=== PATIENT | male | born 1940 | race Caucasian/White ===

== ENCOUNTER 2022-01-08 18:17 | Emergency (ER) | payer OTHER, MEDICAID ==
[~2022-01-08] VITALS: Ht 180.3 cm; Wt 90.7 kg
[2022-01-08 18:36] VITALS: BP 121/55
== END 2022-01-08 21:05 | disposition home or self-care (01) ==
LOC: ER 18:24
DX: L03.116 Cellulitis of left lower limb (principal)

== ENCOUNTER 2022-11-19 17:22 | Emergency (ER) | payer OTHER ==
[~2022-11-19] VITALS: Ht 175.3 cm; Wt 100.0 kg
[2022-11-19] MEDS ORDERED: CEPH-510 PO (20:41)
[2022-11-19] MEDS ORDERED: BACITRACIN TOP OINT 1 UD PKG TOP ONE (20:45)
[2022-11-19] MEDS ORDERED: cefTRIAXone SOD 1,000 MG VL IM ONE (20:45)
[2022-11-19 21:45] VITALS: BP 128/64
== END 2022-11-19 21:45 | disposition home or self-care (01) ==
LOC: ER 17:22
DX: L03.113 Cellulitis of right upper limb (principal); Z79.899 Other long term (current) drug therapy
CPT/HCPCS: 96372; 99283; J0696

== ENCOUNTER 2025-04-27 00:23 | Inpatient (IN) | payer OTHER ==
[~2025-04-27] VITALS: Ht 193 cm; Wt 114.0 kg
[~2025-04-27 00:23] MED LIST: CEPH-510 PO
--- NOTE | 2025-04-27 01:10 | ED.PDOC ---
GI ASSESSMENT HPI Comments 84 year old male presents to the ED with a chief complaint of abdominal pain onset 2 days. Patient is a poor historian. Patient states he has been experiencing epigastric pain for the past 2 days, described as a burning sensation. He was seen at [place] 2 days ago when symptoms occurred, states symptoms were resolved prior to discharge, returned once he was home. Denies any PMHx. Denies chest pain, shortness of breath, nausea, vomiting, diarrhea, headache, constipation, blurry vision, fever. No other symptoms or modifying factors present at this time. Time Seen by MD: 01:00 Primary Care Provider: UNKNOWN Reviewed Notes: Medications, Allergies Allergies: Coded Allergies: NO KNOWN ALLERGIES (Unverified , 01/08/22) Home Meds Active Scripts Cephalexin ( Keflex 500) 500 Mg Cap, 1 CAP PO BID for 7 Days, #14 CAP 0 Refills Prov:KAL MARTE 11/19/22 Information Source: Patient, Friend Mode of Arrival: Wheelchair Timing: Days Duration: Since onset Prehospital treatment: None Quality: Burning Vomitus: None Severity: Moderate Recent: None Recent Hx of: None Pain Location: Epigastric Modifying Factors: Nothing Associated sign and symptoms: Abdominal Pain Vital Signs Vital Signs Date Time Temp Pulse Resp B/P (MAP) Pulse Ox O2 Delivery O2 Flow Rate FiO2 04/27/25 12:29 77 22 162/66 04/27/25 12:00 98.4 97 98.4 04/27/25 08:00 Nasal Cannula* 3 32 Physical Exam PHYSICAL EXAM: General: Awake, alert and oriented. No acute distress. Skin: Skin in warm, dry and intact. Appropriate color for ethnicity. HEENT: The head is normocephalic and atraumatic. Conjunctivae are clear without exudates or hemorrhage. Sclera is non-icteric. EOM are intact. No signs of nystagmus. Eyelids are normal in appearance without swelling or lesions. Oral mucosa is pink and moist Neck: The neck is supple with normal range of motion. No JVD. Cardiac: Heart rate and rhythm are normal. No murmurs, gallops, or rubs are auscultated. Respiratory: No signs of respiratory distress. Lung sounds are clear in all lobes bilaterally without rales, rhonchi, or wheezes. Abdominal: Abdomen is soft, positive epigastric tenderness without distention, guarding or rigidity. Bowel sounds are present and normoactive in all four quadrants. Neurological: The patient is awake, alert and oriented to person, place, and time with normal speech. Speech is clear. There is no facial asymmetry. Review of Systems: REVIEW OF SYSTEMS: General: No fever, no chills, or fatigue HEENT: No sore throat, no earache, no congestion, no neck pain. Cardiac: No chest pain. No palpitations. Lungs: No shortness of breath, no cough. GI: No nausea, no vomiting, no diarrhea, no constipation, positive abdominal pain : No dysuria, frequency, or urgency. No hematuria. Musculoskeletal: No joint pain , no joint swelling, no extremity edema. Skin: No rash, no itching. Neuro: No headache, no dizziness, no weakness Past Medical History PAST MEDICAL HISTORY: Denies Surgical History: Denies all surgeries Family History Family History: Unknown Social History Smoker: Non-Smoker Alcohol: Denies ETOH Use Drugs: Denies Drug Use Lives In: Home Was a procedure done? Was a procedure done?: No GI differential Dx Differential Diagnosis: Other (Differential diagnoses considered include: Abdominal aortic aneurysm, SC, esophageal rupture, intestinal obstruction, mesenteric ischemia, perforated viscus or solid organ rupture, CHF with hepatomegaly, pneumonia, abscess, appendicitis, biliary disease, diverticulitis, gastritis, gastroenteritis, hepatitis, hernia, inflammatory bowel disease, pancreatitis, peptic ulcer disease, urinary tract infection, ureteral colic, constipation, GERD, irritable syndrome, abdominal wall pain, nonspecific abdominal pain, herpes zoster, nephrolithiasis.) X-Ray, Labs, Meds, VS Vital Signs Date Time Temp Pulse Resp B/P (MAP) Pulse Ox O2 Delivery O2 Flow Rate FiO2 04/27/25 12:29 77 22 162/66 04/27/25 12:00 76 04/27/25 12:00 98.4 77 22 162/66 (98) 97 98.4 04/27/25 11:39 77 16 153/69 04/27/25 08:14 78 04/27/25 08:00 77 20 95 Nasal Cannula* 3 32 04/27/25 08:00 98.3 72 20 140/42 (74) 95 98.3 04/27/25 03:36 73 16 164/71 04/27/25 02:44 71 14 92 Room Air* 0 21 7/16/25 02:43 98.0 71 14 165/72 (103) 93 98.0 04/27/25 01:16 97.6 61 20 153/65 (94) 95 97.6 Lab Test 04/27/25 09:14 04/27/25 07:12 04/27/25 05:30 04/27/25 04:30 Range/Units Lactic Acid Level 2.0 2.1 *H 0.4-2.0 mmol/L Urine Color Yellow Yellow Urine Clarity Ex.turbid Clear Urine pH 7.5 5.0-9.0 Urine Specific [place] 1.019 1.001-1.035 Urine Protein Negative Negative Urine Ketones 1+ H Negative Urine Blood Negative Negative /uL Urine Nitrite Negative Negative Urine Bilirubin Negative Negative Urine Urobilinogen Normal Negative mg/dL Urine Leukocyte Esterase Negative Negative /uL Urine RBC 5 0 - 3 /hpf Urine Microscopic WBC 1 0-3 /HPF Urine Squamous Epithelial Cells None seen <5 /hpf Urine Amorphous Crystals Few None Seen /hpf Urine Bacteria None seen None Seen /hpf Urine Glucose Normal Normal mg/dL Troponin I High Sensitivity 3 L </=54 ng/L Test 04/27/25 02:22 04/27/25 01:24 Range/Units Troponin I High Sensitivity < 3 L < 3 L </=54 ng/L White Blood Count 12.7 H 4.4-10.8 10^3/uL Red Blood Count 4.71 4.5-5.90 10^6/uL Hemoglobin 14.6 13.5-17.5 g/dL Hematocrit 44.6 41.0-53.0 % Mean Corpuscular Volume 94.7 80.0-100.0 fL Mean Corpuscular Hemoglobin 31.0 28.0-32.0 pg Mean Corpuscular Hemoglobin Concent 32.8 32.0-36.0 g/dL Red Cell Distribution Width 12.9 11.8-14.3 % Platelet Count 245 140-450 10^3/uL Mean Platelet Volume 7.6 6.9-10.8 fL Neutrophils (%) (Auto) 82.2 H 37.0-80.0 % Lymphocytes (%) (Auto) 9.4 L 10.0-50.0 % Monocytes (%) (Auto) 7.3 0.0-12.0 % Eosinophils (%) (Auto) 0.9 0.0-7.0 % Basophils (%) (Auto) 0.2 0.0-2.0 % Neutrophils # (Auto) 10.4 H 1.6-8.6 10 ^3/uL Lymphocytes # (Auto) 1.2 0.4-5.4 10 ^3/uL Monocytes # (Auto) 0.9 0-1.3 10 ^3/uL Eosinophils # (Auto) 0.1 0-0.8 10 ^3/uL Basophils # (Auto) 0 0-0.2 10 ^3/uL Nucleated Red Blood Cells 0.0 % Sodium Level 138 136-145 mmol/L Potassium Level 3.9 3.5-5.1 mmol/L Chloride Level 101 98-107 mmol/L Carbon Dioxide Level 29 20-31 mmol/L Anion Gap 8 5-15 Blood Urea Nitrogen 14 9-23 mg/dL Creatinine 0.90 0.700-1.30 mg/dL Glomerular Filtration Rate Calc 85 >90 mL/min BUN/Creatinine Ratio 15.6 10.0-20.0 Serum Glucose 125 H 74-106 mg/dL Calcium Level 9.5 8.7-10.4 mg/dL Total Bilirubin 0.7 0.2-1.0 mg/dL Aspartate Amino Transferase (AST) 17 13-40 U/L Alanine Aminotransferase (ALT) 11 7-40 U/L Alkaline Phosphatase 114 46-116 U/L Total Protein 7.4 5.7-8.2 g/dL Albumin 4.3 3.2-4.8 g/dL Lipase 26 12-53 U/L Current Medications Medications (Trade) Dose Ordered Sig/Cathleen Route Start Time Stop Time Status Last Admin Al Hydrox/Mg Hydrox/Simethicone (Maalox Plus) 30 ml ONCE ONCE PO 04/27/25 01:15 04/27/25 01:16 DC 04/27/25 02:38 Lidocaine HCl (Xylocaine 2% Viscous) 10 ml ONCE ONCE PO 04/27/25 01:15 04/27/25 01:16 DC 04/27/25 02:38 Morphine Sulfate 2 mg ONCE ONCE IV 04/27/25 03:45 04/27/25 03:46 DC 04/27/25 03:36 Ondansetron HCl (Zofran) 4 mg ONCE ONCE IV 04/27/25 03:45 04/27/25 03:46 DC 04/27/25 03:35 Sodium Chloride 500 ml @ 500 mls/hr Q1H ONCE IV 04/27/25 05:45 04/27/25 06:44 DC 04/27/25 05:54 Acetaminophen (Tylenol Tablet Or Capsule) 1,000 mg ONCE ONCE PO 04/27/25 05:45 04/27/25 05:46 DC 04/27/25 05:54 Morphine Sulfate 2 mg Q4HPRN PRN IV 04/27/25 07:45 04/27/25 11:39 Piperacillin Sod/ Tazobactam Sod 100 ml @ 100 mls/hr ONCE ONCE IV 04/27/25 08:45 04/27/25 09:44 DC 04/27/25 09:44 Time of 1ST Reevaluation: 01:30 Reevaluation 1ST: Unchanged Patient Education/Counseling: Need For Follow Up Family Education/Counseling: Need For Follow Up SEPSIS Sepsis Screen Physician Orders Electrocardigram (04/27/25 02:04) Electrocardigram (04/27/25 04:04) Ct Ab Pel Wo Con-No Oral Or Iv (04/27/25 01:48) Npo (Nothing By Mouth) Diet (04/27/25 Breakfast) Ondansetron Hcl (Zofran) (04/27/25 07:45) Fall Risk Precautions In Place QSHIFT (04/27/25 07:33) Complete Blood Count (04/28/25 04:00) Comprehensive Metabolic Panel (04/28/25 04:00) Nm Hida Scan (04/27/25 07:33) Piperacillin-Tazob 3.375gm (Zosyn 3.375g (04/27/25 16:00) Morphine Sulfate Injection (04/27/25 07:45) *[facility] (04/27/25 07:33) Vital Signs Date Time Temp Pulse Resp B/P (MAP) Pulse Ox O2 Delivery O2 Flow Rate FiO2 04/27/25 12:29 77 22 162/66 04/27/25 12:00 76 04/27/25 12:00 98.4 77 22 162/66 (98) 97 98.4 04/27/25 11:39 77 16 153/69 04/27/25 08:14 78 04/27/25 08:00 77 20 95 Nasal Cannula* 3 32 04/27/25 08:00 98.3 72 20 140/42 (74) 95 98.3 04/27/25 03:36 73 16 164/71 04/27/25 02:44 71 14 92 Room Air* 0 21 04/27/25 02:43 98.0 71 14 165/72 (103) 93 98.0 04/27/25 01:16 97.6 61 20 153/65 (94) 95 97.6 Laboratory Tests Test 04/27/25 01:24 04/27/25 07:12 04/27/25 09:14 White Blood Count 12.7 10^3/uL (4.4-10.8) H Lactic Acid Level 2.1 mmol/L (0.4-2.0) *H 2.0 mmol/L (0.4-2.0) Departure 1 Departure Time of Disposition: 04:35 Impression: Primary Impression: Intractable abdominal pain Disposition: ADMITTED INPATIENT Condition: Stable Additional Instructions: ED DISCHARGE INSTRUCTIONS Instructions: Please read all instructions provided in this packet carefully. Although you have been discharged from the Emergency Department, this does not mean that you have a "clean bill of health". No definitive diagnosis for your symptoms has been made today. It is possible that you are in the process of developing a serious illness. This is why you must return to the ED without fail if any new or worsening symptoms (especially if your symptoms include chest pain, trouble breathing, abdominal pain, fever, headache, confusion, trouble seeing, or trouble walking) It is also very important that you see a primary care provider (PCP) within the next 1-3 days to follow up. If you are unable to get an appointment, return to the ED for re-evaluation. Comments [facility]: @[id number] discussed with request for admission, he requests a call back with UA result Extensive evaluation was performed in attempt to identify or rule out: (See differential diagnosis section) The following tests were ordered, and results were reviewed by me and discussed with patient: (See diagnostic results section) The following test were independently interpreted by me: N/A I reviewed and agreed with the following test results read by other providers: CT abdomen and pelvis without contrast I reviewed the following notes from the pt's past medical encounters: N/A Additional information was gathered from interviewing the following independent historians: Patient's friend at bedside Discussion of management or test interpretation with external physician/other qualified health primary care sales representative: Yes Parenteral controlled substances: IV morphine Critical Care Note Critical Care Time?: No Stability Stability form required: No I personally scribed for CAT TRUONG MD ([email or web address]) on 04/27/25 at 01:10. Electronically submitted by Dinorah Farmer ([email or web address]). CAT TRUONG MD Apr 27, 2025 01:10
[2025-04-27] MEDS: IOHEXOL 300 MG/ML 100ML BOTTLE IJ ONE (01:32)
[2025-04-27 01:49] LABS: Hematocrit 44.6 % (41.0-53.0); Hemoglobin 14.6 g/dL (13.5-17.5); Mean Corpuscular Hemoglobin 31.0 pg (28.0-32.0); Mean Corpuscular Volume 94.7 fL (80.0-100.0); Nucleated Red Blood Cells % 0.0 %
[2025-04-27 02:05] LABS: Alanine Aminotransferase 11 U/L (7-40); Albumin 4.3 g/dL (3.2-4.8); Alkaline Phosphatase 114 U/L (46-116); Anion Gap 8 (5-15); BUN/Creatinine Ratio 15.6 (10.0-20.0); Bilirubin, Total 0.7 mg/dL (0.2-1.0); Blood Urea Nitrogen 14 mg/dL (9-23); Calcium 9.5 mg/dL (8.7-10.4); Carbon Dioxide 29 mmol/L (20-31); Chloride 101 mmol/L (98-107); Lipase 26 U/L (12-53); Potassium 3.9 mmol/L (3.5-5.1); Sodium 138 mmol/L (136-145); Total Protein 7.4 g/dL (5.7-8.2)
[2025-04-27 02:17] LABS: Glucose 125 mg/dL (74-106)
[2025-04-27] MEDS: LIDOCAINE VISCOUS 2% 15ML UD PO ONE (02:38)
[2025-04-27] MEDS: MAALOX PLUS or MAALOX 30 ML PO ONE (02:38)
[2025-04-27 02:44] VITALS: PULSE 71; RESP 14; O2SAT 92
[2025-04-27] MEDS: ONDANSETRON HCL 4 MG/2 ML VIAL IV ONE (03:35)
[2025-04-27] MEDS: MORPHINE SULFATE INJ 2 MG/ml SYRG IV ONE (03:36)
--- NOTE | 2025-04-27 04:33 | DVH ---
Exam: CT CT AB PEL WO CON-NO ORAL OR IV History: Epigastric abdominal pain Comparison Study: None Technique: Multidetector spiral CT of the abdomen and pelvis was performed from lung bases to pubic s ymphysis. Imaging was performed without intravenous contrast. Coronal and sagittal multiplanar reform ats were obtained from the axial data set by the technologist. Radiation Dose : 1. Abdomen/Pelvis: CTDIvol 27.8 mGy, DLP 1477.74 mGy*cm. Findings: Evaluation of vasculature and solid organs is limited due to lack of intravenous contrast use. Lung Bases: Calcified mediastinal and bilateral hilar lymph nodes. Left basilar opacities and bronchi ectasis. Visualized portions of the heart and pericardium are unremarkable. Liver: The liver is normal in size. No focal lesions. Gallbladder and Biliary Tree: The gallbladder has punctate gallstones. No intrahepatic or extrahepat ic biliary ductal dilatation. Spleen: Unremarkable Pancreas: The pancreas is grossly unremarkable. Adrenal Glands: Unremarkable Kidneys: Bilateral renal cysts. No intrarenal calculi or hydronephrosis. GI tract: The stomach is grossly normal in appearance. No evidence of small bowel wall thickening or abnormal dilatation to suggest bowel obstruction. There is sigmoid diverticulosis without acute diver ticulitis. No acute appendicitis. Peritoneum/mesentery/retroperitoneum. No evidence of free intraperitoneal air. No ascites. No evidenc e of suspicious lymphadenopathy. Abdominal Wall: Unremarkable. Vasculature: The visualized abdominal aorta is normal in size and caliber. Evaluation of abdominal a nd pelvic vessels is limited due to lack of intravenous contrast. Urinary Bladder: Excreted contrast in the urinary bladder. Pelvic Organs: Unremarkable Musculoskeletal: No aggressive focal bony lesions, acute fractures or dislocation. Right hip joint sp ezequiel narrowing and osteophytes. Left femoral nail and screw. Age-indeterminate L1 compression deformit y. Multilevel lumbar spondylosis. Soft tissues: Bilateral fat containing inguinal hernias. IMPRESSION: 1. No acute abdominal or pelvic findings. 2. Sigmoid diverticulosis without acute diverticulitis. 3. Gallstones.
[2025-04-27] MEDS: SODIUM CHLORIDE 0.9% 500 ML IV ONE (05:54)
[2025-04-27] MEDS: ACETAMINOPHEN 500 MG TAB or CAP PO ONE (05:54)
[2025-04-27 07:01] LABS: Urine Amorphous Crystal FEW /hpf (None Seen); Urine Protein, UAD Negative (Negative)
[2025-04-27] MEDS ORDERED: ONDANSETRON HCL 4 MG/2 ML VIAL IV PRN (07:45)
[2025-04-27 08:00] VITALS: PULSE 77; RESP 20; O2SAT 95
[2025-04-27 08:02] LABS: Lactic Acid w/Reflex 2.1 mmol/L (0.4-2.0)
[2025-04-27] MEDS: PIPERACILLIN-TAZOB 3.375GM 100 ML IV ONE (09:44)
[2025-04-27] MEDS: MORPHINE SULFATE INJ 2 MG/ml SYRG IV PRN (11:39)
--- NOTE | 2025-04-27 13:35 | DVH ---
EXAM: NM NM HIDA SCAN History: rule out obstruction, Comparison Study: None TECHNIQUE: Following intravenous administration of 5.5 mCi of Tc-99m mebrofenin (Choletec), dynamic sequential images of the right upper abdomen were acquired for 14 minutes. After the intravenous administration of 2 mg of morphine sulfate, delayed images were acquired at 2 h ours post radiotracer administration. Dynamic images not acquired due to patient being unstable. FINDINGS: The liver demonstrates prompt radiotracer uptake with clearance from blood pool. No focal perfusion d efects were noted. There was prompt excretion of the radiotracer into the biliary tree, without evide nce of biliary dilatation or obstruction. Following administration of morphine, there was no filling of the gallbladder. IMPRESSION: 1. Nonvisualized gallbladder, consistent with acute cholecystitis.
[2025-04-27] MEDS ORDERED: MORPHINE SULFATE INJ 2 MG/ml SYRG IV PRN (13:45)
[2025-04-27] MEDS ORDERED: NITROGLYCERIN 0.4 MG SL TAB SL PRN (13:45)
[2025-04-27] MEDS: LORazepam 2MG/ML-1ML VIAL IV ONE (14:13)
[2025-04-27] MEDS ORDERED: LORazepam 2MG/ML-1ML VIAL IV PRN (14:15)
[2025-04-27] MEDS: D5W/SOD CHL 0.45%/KCL 20MEQ 1,000 ML IV SCH (15:01)
[2025-04-27 16:00] VITALS: BP 137/60; PULSE 80; RESP 20; TEMP 98.6; O2SAT 95
[2025-04-27 16:20] VITALS: BP 137/60; PULSE 80; RESP 20; TEMP 98.6; O2SAT 95
[2025-04-27 16:27] LABS: INR 1.18 (0.9-1.15); Partial Thromboplastin Time 27.1 SEC (24.5-34.5); Prothrombin Time 12.3 sec (9.3-11.8)
[2025-04-27] MEDS: PIPERACILLIN-TAZOB 3.375GM 100 ML IV SCH (16:58)
--- NOTE | 2025-04-27 17:00 | DVH ---
EXAM: XY CHEST XRAY 1 VIEW TECHNIQUE: Single frontal chest radiograph CLINICAL HISTORY: Preop eval COMPARISON: None Findings/Impression: Frontal chest radiograph demonstrates no acute osseous or superficial soft tissue abnormalities. The trachea is midline. The cardiac silhouette and mediastinum are within normal limits. Low lung volumes with bronchovascular crowding. No pneumothorax, pleural effusions, or consolidations.
--- NOTE | 2025-04-27 19:14 | ECG ---
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
[2025-04-27 20:00] VITALS: PULSE 79
--- NOTE | 2025-04-27 20:22 | DVHHP ---
ADMIT DATE: 04/27/2025 CHIEF COMPLAINT: Coming in for abdominal pain, nausea, and vomiting. HISTORY OF PRESENT ILLNESS: An 84-year-old male with no known significant medical history, elderly male lying in bed, a poor historian who is complaining of epigastric pain that seems to be intermittent in nature, associated with nausea and vomiting symptoms. It has been occurring since last Friday. He has been seen at [place] twice due to these symptoms and presents again today due to symptoms are not relenting. The patient denies any diarrhea, constipation, bloody or tarry stools. He denies any fevers or chills and cannot express whether his symptoms are progressively worsened with consumption of food or with abstinence of food. Again, as mentioned above, he is a very poor historian and seems to be alert to self. He is able to tell me today's month and day after looking at his watch, but he is unable to tell me the year. He is able to tell me that he is at a place where sick people are seen, but is unable to express it is a hospital and seems to know his date of and knows who is the president, but apparently has issues remembering other things as mentioned above. The patient likely has some sort of a cognitive deficit, but seems to be overall not confused and able to follow most of the commands. Family members are not around and attempted to reach anybody. The patient does not seem to be confused and seemed more likely to have underlying cognitive deficits, difficulty expressing that he is at a hospital and what the year is. The patient otherwise seems to be stable at this point in time. There are no family members or friends around for questioning. Apparently, there was an individual who was a friend that was with him earlier in the morning that has left and there was no contact for that individual. PAST MEDICAL HISTORY: Per the patient, none. PAST SURGICAL HISTORY: Denies any prior surgeries. SOCIAL HISTORY: Denies tobacco, alcohol, or illicit drugs. MEDICATIONS: The patient denies taking any medications. MEDICATION ALLERGIES: No known drug allergies. REVIEW OF SYSTEMS: A 10-point review of systems was covered with the patient and was negative with the exception to what was present in the history of present illness. PHYSICAL EXAMINATION: VITAL SIGNS: Temperature of 98.4, pulse rate 77, respirations 22, blood pressure 162/66, pulse ox about 97% on room air. GENERAL: Seems to be alert to time, self, and hospital. Not in acute distress male, lying in bed with poor hygiene. HEENT: Normocephalic, atraumatic. Extraocular muscles are intact. Pupils are equally round and reactive to light and accommodations. Mucous membranes look dry. CARDIOVASCULAR: S1, S2 positive. Regular rate and rhythm. No rubs, gallops or murmurs. LUNGS: Seem to be with minimal bilateral posterior base rales. No wheezing or rhonchi. ABDOMEN: Seems to be with tenderness elicited in the epigastric region as well as right upper quadrant region. No guarding. No rebound. Bowel sounds are present. EXTREMITIES: No lower extremity edema, clubbing, or cyanosis. No focal deficits on examination. NEUROLOGIC: Cranial nerves testing 2-12 overall seems to be intact. LABORATORY WORKUP: Shows white count 12.7, H and H 14.6 and 44.6, platelet count of 245,000. There is a neutrophil shift. INR of 1.18. Sodium of 138, potassium of 3.9, chloride of 101, carbon dioxide of 29, BUN of 14, creatinine of 0.9, lactic acid of 2.1 and repeat of 2.0, total bilirubin of 0.7, AST of 17, ALT of 11, alkaline phosphatase of 114. Troponins of 3, 3 and 3. Lipase of 26. Urinalysis shows negative nitrites, negative leukocyte esterase, 1 wbc's, 5 rbc's. IMAGING: CT abdomen and pelvis was completed without contrast. Impression, no acute abdominal pelvic findings. Sigmoid diverticulosis without acute diverticulitis. Gallstones were present. HIDA scan was completed and showed non-visualized gallbladder consistent with acute cholecystitis. DIAGNOSES: * Acute cholecystitis. Secondary Dx: * Dementia. PLAN: The patient will be admitted to the medical floor for continuous monitoring. The patient has been ordered to be maintained n.p.o. at this point in time. IV fluid hydration continuously with D5 half normal saline has been ordered for the patient. The patient has been placed on Zosyn 3.375 IV q. 6 hours for underlying acute cholecystitis. Consultation with Dr. Anaya has been requested, who requested the patient to have preop clearance. The patient has been ordered by Cardiology as well echocardiogram for preop clearance to be completed. The patient otherwise has Zofran 4 mg IV p.r.n. for nausea and vomiting, morphine 2 mg IV q. 4 hours for severe pain. The patient's mental status when comparing to previous notes from ER visits in the last week seemed to be likely at his baseline and patient likely has some neurocognitive deficits which will need to be verified via family or friend which we will try to attempt to get a hold of. The patient again does not seem to be confused. He is able to follow all commands and able to answer questions appropriately but is a poor historian and again is unable to verify the year but seems to be more of a normal thing for the individual rather than an acute delirium or altered mental status; however, infection right now with acute cholecystitis can also affect the patient's mental ____ attempt to reach out. The patient will continue to be monitored closely. The patient is to have repeat labs with CBC and CMP in the morning. Again, the patient is a full code. Further recommendations will depend on patient's hospital progression. Luciano Tate MD LM/ESAU/SAMMIE TID: [id number] RECEIPT: [id number] MTDD
[2025-04-27 21:00] VITALS: BP 141/81; PULSE 78; RESP 18; TEMP 99.1; O2SAT 95
--- NOTE | 2025-04-27 21:03 | DVHINCON2 ---
Date of service: Apr 27, 2025 Referring Physician Erna Reason for Consultation Cardiology clearance History of Present Illness This is an 84 year old male without any significant medical history who presents to the ED with complaints of abdominal pain x 2 days. Patient is a poor historian. Patient describes his pain as a burning sensation. Patient was recently seen at [facility] 2 days prior when his symptoms first occurred and states his symptoms were fully resolved prior to discharge however once the patient retuned back home from [facility] his symptoms returned. WBC 12.7. Troponin is negative x3. LA 2. CT ABD PEL revealed no acute abdominal or pelvic findings. Sigmoid diverticulosis without acute diverticulitis. Gallstones. NM HIDA demonstrated nonvisualized gallbladder, consistent with acute cholecystitis. Chest x-ray shows NAD. Patient was admitted to the hospital. I am asked to consult on this patient. Allergies: Coded Allergies: NO KNOWN ALLERGIES (Unverified , 01/08/22) Home Meds Active Scripts Cephalexin ( Keflex 500) 500 Mg Cap, 1 CAP PO BID for 7 Days, #14 CAP 0 Refills Prov:KAL MARTE 11/19/22 Current Medications Current Medications Medications (Trade) Dose Ordered Sig/Cathleen Route PRN Reason Start Time Stop Time Status Last Admin Ondansetron HCl (Zofran) 4 mg Q4HPRN PRN IV NAUSEA / VOMITING 04/27/25 07:45 Piperacillin Sod/ Tazobactam Sod 100 ml @ 25 mls/hr Q6H IV 04/27/25 16:00 04/27/25 16:58 Morphine Sulfate 2 mg Q4HPRN PRN IV SEVERE PAIN (7-10 PAIN SCALE) 04/27/25 07:45 04/27/25 11:39 Enoxaparin Sodium (Lovenox) 40 mg DAILY SC 04/28/25 10:00 04/27/25 14:46 DC Nitroglycerin (Ntrostat Sublingual) 0.4 mg Q5MINP PRN SL FOR CHEST PAIN 04/27/25 13:45 Morphine Sulfate 2 mg Q30M PRN IV FOR CHEST PAIN 04/27/25 13:45 Lorazepam (Ativan Inj) 1 mg Q8HP PRN IV ANXIETY 04/27/25 14:15 Potassium Chloride/Dextrose/ Sod Cl 1,000 ml @ 100 mls/hr Q10H IV 04/27/25 14:45 04/27/25 15:01 Review of Systems General: No fever, no chills, or fatigue HEENT: No sore throat, no earache, no congestion, no neck pain. Cardiac: No chest pain. No palpitations. Lungs: No shortness of breath, no cough. GI: No nausea, no vomiting, no diarrhea, no constipation, positive abdominal pain : No dysuria, frequency, or urgency. No hematuria. Musculoskeletal: No joint pain , no joint swelling, no extremity edema. Skin: No rash, no itching. Neuro: No headache, no dizziness, no weakness Vital Signs Vital Signs Date Time Temp Pulse Resp B/P (MAP) Pulse Ox O2 Delivery O2 Flow Rate FiO2 04/27/25 16:20 80 20 95 Nasal Cannula* 3 32 04/27/25 16:20 98.6 137/60 (85) 98.6 Physical Exam GENERAL: Alert and oriented x 3. No acute distress. EYES: PERRL, EOMI. Anicteric. HENT: Moist mucous membranes. LUNGS: Clear to auscultation bilaterally. CARDIOVASCULAR: Regular rate and rhythm. ABDOMEN: Soft, epigastric tenderness. EXTREMITIES: No edema. NEUROLOGIC: No focal neurological deficits. SKIN: Warm, dry. Labs/Diagnostic Data Labs Test 04/27/25 15:47 04/27/25 09:14 04/27/25 05:30 04/27/25 04:30 Range/Units Prothrombin Time 12.3 H 9.3-11.8 sec Prothrombin Time INR 1.18 H 0.9-1.15 Activated Partial Thromboplast Time 27.1 24.5-34.5 SEC Lactic Acid Level 2.0 0.4-2.0 mmol/L Urine Color Yellow Yellow Urine Clarity Ex.turbid Clear Urine pH 7.5 5.0-9.0 Urine Specific [place] 1.019 1.001-1.035 Urine Protein Negative Negative Urine Ketones 1+ H Negative Urine Blood Negative Negative /uL Urine Nitrite Negative Negative Urine Bilirubin Negative Negative Urine Urobilinogen Normal Negative mg/dL Urine Leukocyte Esterase Negative Negative /uL Urine RBC 5 0 - 3 /hpf Urine Microscopic WBC 1 0-3 /HPF Urine Squamous Epithelial Cells None seen <5 /hpf Urine Amorphous Crystals Few None Seen /hpf Urine Bacteria None seen None Seen /hpf Urine Glucose Normal Normal mg/dL Troponin I High Sensitivity 3 L </=54 ng/L Test 04/27/25 01:24 Range/Units White Blood Count 12.7 H 4.4-10.8 10^3/uL Red Blood Count 4.71 4.5-5.90 10^6/uL Hemoglobin 14.6 13.5-17.5 g/dL Hematocrit 44.6 41.0-53.0 % Mean Corpuscular Volume 94.7 80.0-100.0 fL Mean Corpuscular Hemoglobin 31.0 28.0-32.0 pg Mean Corpuscular Hemoglobin Concent 32.8 32.0-36.0 g/dL Red Cell Distribution Width 12.9 11.8-14.3 % Platelet Count 245 140-450 10^3/uL Mean Platelet Volume 7.6 6.9-10.8 fL Neutrophils (%) (Auto) 82.2 H 37.0-80.0 % Lymphocytes (%) (Auto) 9.4 L 10.0-50.0 % Monocytes (%) (Auto) 7.3 0.0-12.0 % Eosinophils (%) (Auto) 0.9 0.0-7.0 % Basophils (%) (Auto) 0.2 0.0-2.0 % Neutrophils # (Auto) 10.4 H 1.6-8.6 10 ^3/uL Lymphocytes # (Auto) 1.2 0.4-5.4 10 ^3/uL Monocytes # (Auto) 0.9 0-1.3 10 ^3/uL Eosinophils # (Auto) 0.1 0-0.8 10 ^3/uL Basophils # (Auto) 0 0-0.2 10 ^3/uL Nucleated Red Blood Cells 0.0 % Sodium Level 138 136-145 mmol/L Potassium Level 3.9 3.5-5.1 mmol/L Chloride Level 101 98-107 mmol/L Carbon Dioxide Level 29 20-31 mmol/L Anion Gap 8 5-15 Blood Urea Nitrogen 14 9-23 mg/dL Creatinine 0.90 0.700-1.30 mg/dL Glomerular Filtration Rate Calc 85 >90 mL/min BUN/Creatinine Ratio 15.6 10.0-20.0 Serum Glucose 125 H 74-106 mg/dL Calcium Level 9.5 8.7-10.4 mg/dL Total Bilirubin 0.7 0.2-1.0 mg/dL Aspartate Amino Transferase (AST) 17 13-40 U/L Alanine Aminotransferase (ALT) 11 7-40 U/L Alkaline Phosphatase 114 46-116 U/L Total Protein 7.4 5.7-8.2 g/dL Albumin 4.3 3.2-4.8 g/dL Lipase 26 12-53 U/L Assessment Acute cholecystitis. Abdominal pain. Sigmoid diverticulosis. Plan/Recommendation I agree with your ongoing assessment and care of plan. Patient is cardiac clear for procedure. Telemetry reviewed. Echocardiogram. Morphine for pain management. IV antibiotics as ordered. Additional plan as per the hospital course. A total of 45 minutes was spent reviewing the patient record, examining the patient, making a diagnostic and therapeutic plan, discussing this plan with medical personnel, following up on diagnostic studies and following the patient for clinical stability excluding any and all procedures. At least 50% of this time was spent in direct, [id number] contact. Plan discussed with: Patient CHUCK CUETO MD Apr 27, 2025 18:57
[2025-04-28] VITALS (10 sets, daily range): BP systolic 95–153; BP diastolic 50–79; PULSE 76–93; RESP 18–20; TEMP 98.2–99.7; O2SAT 91–97
[2025-04-28 06:01] LABS: Hematocrit 46.8 % (41.0-53.0); Hemoglobin 15.7 g/dL (13.5-17.5); Mean Corpuscular Hemoglobin 31.3 pg (28.0-32.0); Mean Corpuscular Volume 93.3 fL (80.0-100.0)
[2025-04-28 06:19] LABS: Alanine Aminotransferase 17 U/L (7-40); Albumin 4.1 g/dL (3.2-4.8); Alkaline Phosphatase 110 U/L (46-116); Anion Gap 6 (5-15); BUN/Creatinine Ratio 18.9 (10.0-20.0); Blood Urea Nitrogen 14 mg/dL (9-23); Calcium 9.6 mg/dL (8.7-10.4); Carbon Dioxide 28 mmol/L (20-31); Chloride 101 mmol/L (98-107); Potassium 3.9 mmol/L (3.5-5.1); Total Protein 7.1 g/dL (5.7-8.2)
[2025-04-28 06:23] LABS: Bilirubin, Total 1.6 mg/dL (0.2-1.0); Glucose 116 mg/dL (74-106); Sodium 135 mmol/L (136-145)
[2025-04-28 06:49] LABS: Total Cells Counted 100.0 (100)
[2025-04-28] MEDS ORDERED: VANCOMYCIN PER PHARMACY 0 MG IV SCH (07:15)
--- NOTE | 2025-04-28 07:15 | DVHPN2 ---
Progress Note Date Seen: Apr 28, 2025 Has the PT tested + for MRSA If YES, has PT been informed?: No Medical Necessity Reason Pt with a Central, PICC or Fol: No Subjective Patient reports: No new complaints Review of Systems: HEENT:Normal, CVS:Normal, RESPIRATORY:Normal, GI:Normal Objective vital signs Vital Sign Date Time Temp Pulse Resp B/P (MAP) Pulse Ox O2 Delivery O2 Flow Rate FiO2 04/28/25 05:00 98.9 82 19 141/74 (96) 95 98.9 04/27/25 20:00 Nasal Cannula* 2 28 Total Intake and Output 04/27/25 04/27/25 04/28/25 15:00 23:00 07:00 Intake Total 600 ml 300 ml 100 ml Output Total 100 ml 100 ml Balance 600 ml 200 ml 0 ml medications Current Medications Medications Dose Ordered Sig/Cathleen Route Start Time Stop Time Status Last Admin Dose Admin Ondansetron HCl 4 mg Q4HPRN PRN IV 04/27/25 07:45 Piperacillin Sod/ Tazobactam Sod 100 ml @ 25 mls/hr Q6H IV 04/27/25 16:00 04/28/25 04:30 25 MLS/HR Morphine Sulfate 2 mg Q4HPRN PRN IV 04/27/25 07:45 04/27/25 11:39 2 MG Nitroglycerin 0.4 mg Q5MINP PRN SL 04/27/25 13:45 Morphine Sulfate 2 mg Q30M PRN IV 04/27/25 13:45 Lorazepam 1 mg Q8HP PRN IV 04/27/25 14:15 Potassium Chloride/Dextrose/ Sod Cl 1,000 ml @ 100 mls/hr Q10H IV 04/27/25 14:45 04/27/25 15:01 100 MLS/HR Examination: GENERAL:Normal, LUNGS:Normal, CVS:Normal, ABDOMEN:Normal laboratory and microbiology Laboratory Tests 04/28/25 05:20 Test 04/28/25 05:20 Range/Units Serum Glucose 116 H 74-106 mg/dL Problem List/Assessment/Plan Problem List/Assessment/Plan 1) Acute cholecystitis plan; NPO, IV Abx, IVF hydration, antiemetics, pain control, cardio clearance, surgical consult, daily labs, supportive care, will follow along Plan discussed with: Other (n) MELISSA IRIZARRY MD Apr 28, 2025 07:15
[2025-04-28] MEDS: VANCOMYCIN 1.5GM/300ML 300 ML IV ONE (09:42)
--- NOTE | 2025-04-28 09:58 | DVHINCON2 ---
Date of service: Apr 28, 2025 Allergies: Coded Allergies: NO KNOWN ALLERGIES (Unverified , 01/08/22) Home Meds Active Scripts Cephalexin ( Keflex 500) 500 Mg Cap, 1 CAP PO BID for 7 Days, #14 CAP 0 Refills Prov:KAL MARTE 11/19/22 Current Medications Current Medications Medications (Trade) Dose Ordered Sig/Cathleen Route PRN Reason Start Time Stop Time Status Last Admin Piperacillin Sod/ Tazobactam Sod 100 ml @ 25 mls/hr Q6H IV 04/27/25 16:00 04/28/25 04:30 Enoxaparin Sodium (Lovenox) 40 mg DAILY SC 04/28/25 10:00 04/27/25 14:46 DC Nitroglycerin (Ntrostat Sublingual) 0.4 mg Q5MINP PRN SL FOR CHEST PAIN 04/27/25 13:45 Morphine Sulfate 2 mg Q30M PRN IV FOR CHEST PAIN 04/27/25 13:45 Lorazepam (Ativan Inj) 1 mg Q8HP PRN IV ANXIETY 04/27/25 14:15 Potassium Chloride/Dextrose/ Sod Cl 1,000 ml @ 100 mls/hr Q10H IV 04/27/25 14:45 04/27/25 15:01 Vancomycin HCl 0 ml @ 0 mls/hr UD IV 04/28/25 07:15 UNV Vital Signs Vital Signs Date Time Temp Pulse Resp B/P (MAP) Pulse Ox O2 Delivery O2 Flow Rate FiO2 04/28/25 08:59 98.2 83 18 153/79 (103) 96 98.2 04/28/25 08:21 Room Air* 0 21 Labs/Diagnostic Data Labs Test 04/28/25 05:20 04/27/25 15:47 04/27/25 09:14 04/27/25 05:30 Range/Units White Blood Count 28.9 #H 4.4-10.8 10^3/uL Red Blood Count 5.01 4.5-5.90 10^6/uL Hemoglobin 15.7 13.5-17.5 g/dL Hematocrit 46.8 41.0-53.0 % Mean Corpuscular Volume 93.3 80.0-100.0 fL Mean Corpuscular Hemoglobin 31.3 28.0-32.0 pg Mean Corpuscular Hemoglobin Concent 33.6 32.0-36.0 g/dL Red Cell Distribution Width 12.9 11.8-14.3 % Platelet Count 227 140-450 10^3/uL Mean Platelet Volume 7.8 6.9-10.8 fL Neutrophils (%) (Auto) 37.0-80.0 % Lymphocytes (%) (Auto) 10.0-50.0 % Monocytes (%) (Auto) 0.0-12.0 % Basophils (%) (Auto) 0.0-2.0 % Neutrophils # (Auto) 1.6-8.6 10 ^3/uL Lymphocytes # (Auto) 0.4-5.4 10 ^3/uL Monocytes # (Auto) 0-1.3 10 ^3/uL Differential Total Cells Counted 100.0 100 Neutrophils % (Manual) 89 H 37.0-80.0 Band Neutrophils % (Manual) 0 Lymphocytes % (Manual) 2 L 10.0-50.0 Monocytes % (Manual) 9 0-12 Eosinophils % (Manual) 0 0-7 Basophils % (Manual) 0 0.0-2.0 Metamyelocytes % (manual) 0 Myelocytes % (Manual) 0 Promyelocytes % (Manual) 0 Blast Cells % (Manual) 0 Reactive Lymphocytes 0 Platelet Estimate Adequate Sodium Level 135 L 136-145 mmol/L Potassium Level 3.9 3.5-5.1 mmol/L Chloride Level 101 98-107 mmol/L Carbon Dioxide Level 28 20-31 mmol/L Anion Gap 6 5-15 Blood Urea Nitrogen 14 9-23 mg/dL Creatinine 0.74 0.700-1.30 mg/dL Glomerular Filtration Rate Calc 90 >90 mL/min BUN/Creatinine Ratio 18.9 10.0-20.0 Serum Glucose 116 H 74-106 mg/dL Calcium Level 9.6 8.7-10.4 mg/dL Total Bilirubin 1.6 H 0.2-1.0 mg/dL Aspartate Amino Transferase (AST) 32 13-40 U/L Alanine Aminotransferase (ALT) 17 7-40 U/L Alkaline Phosphatase 110 46-116 U/L Total Protein 7.1 5.7-8.2 g/dL Albumin 4.1 3.2-4.8 g/dL Prothrombin Time 12.3 H 9.3-11.8 sec Prothrombin Time INR 1.18 H 0.9-1.15 Activated Partial Thromboplast Time 27.1 24.5-34.5 SEC Lactic Acid Level 2.0 0.4-2.0 mmol/L Urine Color Yellow Yellow Urine Clarity Ex.turbid Clear Urine pH 7.5 5.0-9.0 Urine Specific [place] 1.019 1.001-1.035 Urine Protein Negative Negative Urine Ketones 1+ H Negative Urine Blood Negative Negative /uL Urine Nitrite Negative Negative Urine Bilirubin Negative Negative Urine Urobilinogen Normal Negative mg/dL Urine Leukocyte Esterase Negative Negative /uL Urine RBC 5 0 - 3 /hpf Urine Microscopic WBC 1 0-3 /HPF Urine Squamous Epithelial Cells None seen <5 /hpf Urine Amorphous Crystals Few None Seen /hpf Urine Bacteria None seen None Seen /hpf Urine Glucose Normal Normal mg/dL Test 04/27/25 04:30 04/27/25 01:24 Range/Units Troponin I High Sensitivity 3 L </=54 ng/L Eosinophils (%) (Auto) 0.9 0.0-7.0 % Eosinophils # (Auto) 0.1 0-0.8 10 ^3/uL Basophils # (Auto) 0 0-0.2 10 ^3/uL Nucleated Red Blood Cells 0.0 % Lipase 26 12-53 U/L Assessment 04/28/25 84 year old male with cholecystitis, right upper abdominal quadrant tenderness, patient is confused and disoriented (apparently has dementia) and is not able to give consent. Brother reportedly has POA and is on the way to the hospital to consent for the operation which is indicated due to the marked leukocytosis. labs and x rays reviewed.patient examined Plan discussed with: Patient, Other MAC ARMENTA MD Apr 28, 2025 09:58
[2025-04-28] MEDS ORDERED: ENOXAPARIN SOD 40 MG/0.4 ML SYRINGE SC SCH (10:00)
[2025-04-28] MEDS: SUCCINYLCHOLINE CHLORIDE 20 MG/ML 10ML VIAL IV ONE (11:31)
[2025-04-28] MEDS ORDERED: fentaNYL CITRATE 100 MCG/2 ML VL ONE (11:32)
[2025-04-28] MEDS ORDERED: HYDROmorphone HCL 2 MG/ML VL/or syr ONE (11:33)
[2025-04-28] MEDS ORDERED: ROCURONIUM 10MG/ML 10ML VIAL IV ONE (12:10)
[2025-04-28] MEDS ORDERED: SUGAMMADEX 200mg/2ml Vial (100MG/ML) IV ONE (12:44)
[2025-04-28] MEDS: BUPIVACAINE 0.5% P/F INJ 10 ML VIAL ONE (12:44)
[2025-04-28] MEDS ORDERED: ONDANSETRON HCL 4 MG/2 ML VIAL ONE (12:45)
[2025-04-28] MEDS: LIDOCAINE W/ EPINEPHRINE 1% 20ML VIAL ONE (12:45)
[2025-04-28] MEDS: POVIDONE IODINE 10 % TOPICAL OINT 30GM TOP ONE (12:57)
[2025-04-28] MEDS ORDERED: ACETAMINOPHEN IV 1000 MG/100ML (10MG/ML) IV PRN (13:15)
[2025-04-28] MEDS ORDERED: D5W/SOD CHL 0.45%/KCL 20MEQ 1,000 ML IV SCH (13:15)
[2025-04-28] MEDS: ONDANSETRON HCL 4 MG/2 ML VIAL IV ONE (13:15)
[2025-04-28] MEDS ORDERED: ACETAMINOPHEN/CODEINE#3 (300/30mg) TAB PO PRN (13:15)
[2025-04-28] MEDS ORDERED: HYDROmorphone HCL 2 MG/ML VL/or syr IV PRN ×2 (13:15)
[2025-04-28] MEDS ORDERED: ONDANSETRON HCL 4 MG/2 ML VIAL IV PRN (13:15)
--- NOTE | 2025-04-28 13:47 | DVHOP ---
DATE OF SURGERY: 04/28/2025 PREOPERATIVE DIAGNOSES: * Cholelithiasis. * Cholecystitis. POSTOPERATIVE DIAGNOSES: * Cholelithiasis. * Gangrenous cholecystitis. SURGEON: Vivek Anaya MD ANESTHESIA: General endotracheal, Dr. Thomas. PROCEDURES: * Laparoscopy. * Laparoscopic cholecystectomy. DESCRIPTION OF PROCEDURE: Under general endotracheal anesthesia with the patient's skin prepped and draped, a supraumbilical incision was made and Veress needle inserted into the peritoneal cavity by the hanging drop technique in order to establish pneumoperitoneum to 15 mmHg pressure by insufflation with carbon dioxide. With the abdomen fully distended, the needle was removed and replaced with a 5 mm trocar port through which a 0-degree viewing laparoscope was inserted and under direct vision an additional 5 mm port in the anterior axillary line at the level of the umbilicus on the right flank and 10 mm port in the subxiphoid midline skin were then introduced. Instrumentation was introduced into the peritoneal cavity and laparoscopy was performed. The patient has severe ileus, massively dilated loops of bowel and colon. The colon was packed with stool and the colon was above the liver. The gallbladder was behind the rib cage and it was extremely difficult to reach. Extra long instruments had to be reached to reach the gallbladder. There was no other unexpected pathology encountered on the examination. The gallbladder was then aspirated of bile. The wall of the gallbladder was gangrenous with patchy areas of necrosis. The bile was sent for cultures and sensitivity. The cystic duct and cystic artery were identified, circumferentially dissected, and traced into the hepatocystic triangle. The cystic duct and cystic artery were then divided between metallic clips close to the gallbladder as to minimize the potential for any inadvertent injury to the common bile duct and the gallbladder was resected from its liver bed. The entire gallbladder was intrahepatic and the resection of the gallbladder from the liver bed resulted in denuding of the liver parenchyma and some moderate amount of bleeding which was controlled with electrocautery and pressure. The intrahepatic nature of the gallbladder called for insertion of a drain which was inserted and placed underneath the right lobe of the liver and exteriorized through the 5 mm port site on the right flank and secured with a 0 suture. The right upper quadrant was then irrigated. Irrigant was aspirated. Hemostasis meticulously accomplished and found to be complete. At the termination of procedure, there was no evidence of bleeding from either the port sites or from the gallbladder bed. The patient's abdomen was then desufflated after removal of the instrumentation and aspiration of all the irrigant. Fascial defect closed using 0 Vicryl. Wounds approximated using metallic skin antonio. The patient remained hemodynamically stable throughout the procedure, left the operating room following an accurate needle and sponge counts. His brother, Esdras, was thoroughly informed at [phone] and his primary physician was informed by phone as well. MD IZABELA Lopez/ANUM TID: [id number] RECEIPT: [id number]
--- NOTE | 2025-04-28 18:18 | DVHSR ---
APPROVED REPORT EXAM: LIMITED Two-dimensional and M-mode echocardiogram with Doppler and color Doppler. Blood Pressure: 162/66 mmHg INDICATION Pre-Op RISK FACTORS Obesity: Height: 6'4, Weight: 240 DIMENSIONS LVDd4.0 (3.8-5.7cm)LA (2D)3.9 (1.9-4.0cm)Aortic Root3.6 (2.0-3.7cm) LVDs2.4 (2.5-4.0cm)LA (MM) (1.9-4.0cm)Aortic Cusp Exc1.1 (1.5-2.0cm) EF (%) 60.0 (55-70%)Rt. Atrium3.3 (1.9-4.0cm)Asc. Aorta cm IVSd1.1 (0.7-1.1cm)RV (D)3.9 (1.8-2.4cm) PWd1.0 (0.7-1.1cm) Mitral Valve MitralMitral Stenosis E wave0.73m/sMV Mean GR.mmHg A wave0.78m/sMV Peak GR.66mmHg E/A ratio0.92D MVAcm2 DECEL [id number] 1/2 Timems Aortic Valve Aortic ValveAortic Stenosis V10.77m/Tresa Mean GR.8mmHg V21.91m/Tresa Peak GR.15mmHg LVOT Diameter2.0 (1.8-2.4cm)Doppler AVA1.27cm2 Tricuspid Valve TR Velocity2.31m/s [id number] Other Information Quality : Technically LimitedRhythm : Technically limited study due to pt confused grabbing probe and moving Conclusion LVEF normal at 55-60%, mild LVH RV size and function normal No significant valve disease
[2025-04-28] MEDS: VANCOMYCIN 1GM/200ML PM 200 ML IV SCH (20:54)
--- NOTE | 2025-04-28 21:40 | DVHPN2 ---
Progress Note - Dictate Date Seen: Apr 28, 2025 Has the PT tested + for MRSA If YES, has PT been informed?: No Medical Necessity Reason Pt with a Central, PICC or Fol: No Subjective Patient was seen and evaluated in follow up. Patient underwent laparoscopic cholecystomy, tolerated procedure well. Patient complains of pain at the surgical site. WBC 28.9. Telemetry reviewed. vital signs Vital Sign Date Time Temp Pulse Resp B/P (MAP) Pulse Ox O2 Delivery O2 Flow Rate FiO2 04/28/25 08:59 98.2 83 18 153/79 (103) 96 98.2 04/28/25 08:21 Room Air* 0 21 Total Intake and Output 04/27/25 04/27/25 04/28/25 15:00 23:00 07:00 Intake Total 600 ml 300 ml 100 ml Output Total 100 ml 100 ml Balance 600 ml 200 ml 0 ml medications Current Medications Medications Dose Ordered Sig/Cathleen Route Start Time Stop Time Status Last Admin Dose Admin Ondansetron HCl 4 mg Q4HPRN PRN IV 04/27/25 07:45 Piperacillin Sod/ Tazobactam Sod 100 ml @ 25 mls/hr Q6H IV 04/27/25 16:00 04/28/25 04:30 25 MLS/HR Morphine Sulfate 2 mg Q4HPRN PRN IV 04/27/25 07:45 04/27/25 11:39 2 MG Nitroglycerin 0.4 mg Q5MINP PRN SL 04/27/25 13:45 Morphine Sulfate 2 mg Q30M PRN IV 04/27/25 13:45 Lorazepam 1 mg Q8HP PRN IV 04/27/25 14:15 Potassium Chloride/Dextrose/ Sod Cl 1,000 ml @ 100 mls/hr Q10H IV 04/27/25 14:45 04/27/25 15:01 100 MLS/HR Vancomycin HCl 0 ml @ 0 mls/hr UD IV 04/28/25 07:15 UNV Acetaminophen 1,000 mg [id number] PRN IV 04/28/25 13:15 04/28/25 13:16 UNV Hydromorphone HCl 0.25 mg Q10M PRN IV 04/28/25 13:15 04/28/25 13:56 UNV Potassium Chloride/Dextrose/ Sod Cl 1,000 ml @ 100 mls/hr Q10H IV 04/28/25 13:15 UNV Hydromorphone HCl 1 mg Q3HPRN PRN IV 04/28/25 13:15 UNV Acetaminophen/ Codeine Phosphate 1 tab Q4HP PRN PO 04/28/25 13:15 UNV Ondansetron HCl 4 mg Q4HPRN PRN IV 04/28/25 13:15 UNV objective GENERAL: Alert and oriented x 3. No acute distress. EYES: PERRL, EOMI. Anicteric. HENT: Moist mucous membranes. LUNGS: Clear to auscultation bilaterally. CARDIOVASCULAR: Regular rate and rhythm. ABDOMEN: Soft, epigastric tenderness. EXTREMITIES: No edema. NEUROLOGIC: No focal neurological deficits. SKIN: Warm, dry. laboratory and microbiology Laboratory Tests 04/28/25 05:20 Test 04/28/25 05:20 Range/Units Serum Glucose 116 H 74-106 mg/dL Problem List Acute cholecystitis. Abdominal pain. Sigmoid diverticulosis. Assessment/Plan Continued all current supportive medical care. Echocardiogram. Nitro SL. Morphine, Dilaudid and Tylenol #3 for pain management. IV antibiotics as ordered. Additional plan as per the hospital course. Plan discussed with: Patient CHUCK CUETO MD Apr 28, 2025 13:29
[2025-04-29] VITALS (9 sets, daily range): BP systolic 100–133; BP diastolic 39–66; PULSE 67–85; RESP 16–20; TEMP 98.2–98.7; O2SAT 93–96
--- NOTE | 2025-04-29 07:02 | DVHPN2 ---
Progress Note Date Seen: Apr 29, 2025 Has the PT tested + for MRSA If YES, has PT been informed?: No Medical Necessity Reason Pt with a Central, PICC or Fol: No Subjective Patient reports: No new complaints Review of Systems: HEENT:Normal, CVS:Normal, RESPIRATORY:Normal, GI:Abnormal, :Normal Objective vital signs Vital Sign Date Time Temp Pulse Resp B/P (MAP) Pulse Ox O2 Delivery O2 Flow Rate FiO2 04/29/25 05:00 98.5 78 20 113/39 (63) 94 98.5 04/28/25 20:00 Room Air* 2 N/A Nasal Cannula* Total Intake and Output 04/28/25 04/28/25 04/29/25 15:00 23:00 07:00 Intake Total 100 ml 300 ml 1320 ml Output Total 130 ml 375 ml Balance -30 ml 300 ml 945 ml medications Current Medications Medications Dose Ordered Sig/Cathleen Route Start Time Stop Time Status Last Admin Dose Admin Ondansetron HCl 4 mg Q4HPRN PRN IV 04/27/25 07:45 Cancel Piperacillin Sod/ Tazobactam Sod 100 ml @ 25 mls/hr Q6H IV 04/27/25 16:00 04/29/25 04:11 25 MLS/HR Morphine Sulfate 2 mg Q4HPRN PRN IV 04/27/25 07:45 Hold 04/27/25 11:39 2 MG Nitroglycerin 0.4 mg Q5MINP PRN SL 04/27/25 13:45 Morphine Sulfate 2 mg Q30M PRN IV 04/27/25 13:45 Lorazepam 1 mg Q8HP PRN IV 04/27/25 14:15 Potassium Chloride/Dextrose/ Sod Cl 1,000 ml @ 100 mls/hr Q10H IV 04/27/25 14:45 04/29/25 01:17 100 MLS/HR Vancomycin HCl 0 ml @ 0 mls/hr UD IV 04/28/25 07:15 Potassium Chloride/Dextrose/ Sod Cl 1,000 ml @ 100 mls/hr Q10H IV 04/28/25 13:15 UNV Hydromorphone HCl 1 mg Q3HPRN PRN IV 04/28/25 13:15 Acetaminophen/ Codeine Phosphate 1 tab Q4HP PRN PO 04/28/25 13:15 Ondansetron HCl 4 mg Q4HPRN PRN IV 04/28/25 13:15 Vancomycin HCl 200 ml @ 200 mls/hr Q12H IV 04/28/25 21:00 04/28/25 20:54 200 MLS/HR Examination: GENERAL:Normal, HEENT:Normal, LUNGS:Normal, CVS:Normal, ABDOMEN:Normal laboratory and microbiology Laboratory Tests 04/28/25 05:20 Test 04/28/25 05:20 Range/Units Serum Glucose 116 H 74-106 mg/dL Problem List/Assessment/Plan Problem List/Assessment/Plan 1) Acute cholecystitis plan; 04/28-------NPO, IV Abx, IVF hydration, antiemetics, pain control, cardio clearance, surgical consult, daily labs, supportive care, will follow along 04/29----lap kennedy was done yesterday, clear liquid diet as per surgery, pain control, IV antiemetics, IVF hydration, supportive care, continue IV ABx, labs for this AM not drawn and will follow up, surgery on board, will follow up with labs. continue all supportive care Plan discussed with: Other (n) MELISSA IRIZARYR MD Apr 29, 2025 07:02
[2025-04-29 07:25] LABS: Hematocrit 40.8 % (41.0-53.0); Hemoglobin 13.8 g/dL (13.5-17.5); Mean Corpuscular Hemoglobin 31.8 pg (28.0-32.0); Mean Corpuscular Volume 94.0 fL (80.0-100.0); Nucleated Red Blood Cells % 0.0 %
[2025-04-29 07:40] LABS: Alanine Aminotransferase 32 U/L (7-40); Albumin 3.3 g/dL (3.2-4.8); Alkaline Phosphatase 91 U/L (46-116); Anion Gap 8 (5-15); BUN/Creatinine Ratio 26.3 (10.0-20.0); Blood Urea Nitrogen 20 mg/dL (9-23); Carbon Dioxide 28 mmol/L (20-31); Chloride 102 mmol/L (98-107); Glucose 99 mg/dL (74-106); Potassium 4.2 mmol/L (3.5-5.1); Sodium 138 mmol/L (136-145)
[2025-04-29 07:51] LABS: Bilirubin, Total 1.3 mg/dL (0.2-1.0); Calcium 8.4 mg/dL (8.7-10.4); Total Protein 5.5 g/dL (5.7-8.2)
--- NOTE | 2025-04-29 12:50 | DVHPN2 ---
Progress Note Date Seen: Apr 29, 2025 Has the PT tested + for MRSA If YES, has PT been informed?: No Medical Necessity Reason Pt with a Central, PICC or Fol: No Objective vital signs Vital Sign Date Time Temp Pulse Resp B/P (MAP) Pulse Ox O2 Delivery O2 Flow Rate FiO2 04/29/25 08:34 98.2 76 17 118/46 (70) 96 98.2 04/29/25 08:01 Nasal Cannula* 3 32 Total Intake and Output 04/28/25 04/28/25 04/29/25 15:00 23:00 07:00 Intake Total 100 ml 300 ml 1320 ml Output Total 130 ml 375 ml Balance -30 ml 300 ml 945 ml medications Current Medications Medications Dose Ordered Sig/Cathleen Route Start Time Stop Time Status Last Admin Dose Admin Ondansetron HCl 4 mg Q4HPRN PRN IV 04/27/25 07:45 Cancel Piperacillin Sod/ Tazobactam Sod 100 ml @ 25 mls/hr Q6H IV 04/27/25 16:00 04/29/25 10:35 25 MLS/HR Morphine Sulfate 2 mg Q4HPRN PRN IV 04/27/25 07:45 Hold 04/27/25 11:39 2 MG Nitroglycerin 0.4 mg Q5MINP PRN SL 04/27/25 13:45 Morphine Sulfate 2 mg Q30M PRN IV 04/27/25 13:45 Lorazepam 1 mg Q8HP PRN IV 04/27/25 14:15 Potassium Chloride/Dextrose/ Sod Cl 1,000 ml @ 100 mls/hr Q10H IV 04/27/25 14:45 04/29/25 01:17 100 MLS/HR Vancomycin HCl 0 ml @ 0 mls/hr UD IV 04/28/25 07:15 Potassium Chloride/Dextrose/ Sod Cl 1,000 ml @ 100 mls/hr Q10H IV 04/28/25 13:15 UNV Hydromorphone HCl 1 mg Q3HPRN PRN IV 04/28/25 13:15 Acetaminophen/ Codeine Phosphate 1 tab Q4HP PRN PO 04/28/25 13:15 Ondansetron HCl 4 mg Q4HPRN PRN IV 04/28/25 13:15 Vancomycin HCl 200 ml @ 200 mls/hr Q12H IV 04/28/25 21:00 04/29/25 08:41 200 MLS/HR laboratory and microbiology Laboratory Tests 04/29/25 05:40 Test 04/29/25 05:40 Range/Units Serum Glucose 99 74-106 mg/dL Problem List/Assessment/Plan Problem List/Assessment/Plan 04/29/25 improving, abdomen appropriately tender, wounds clean and well approximated, bilirubin and LFT/sd as well as WBC improving, continue as is , needs ambulation Plan discussed with: Patient MAC ARMENTA MD Apr 29, 2025 12:50
[2025-04-29] MEDS ORDERED: ETOMIDATE (2MG/ML) 20ML VIAL IV ONE (15:02)
--- NOTE | 2025-04-29 23:26 | DVHPN2 ---
Progress Note - Dictate Date Seen: Apr 29, 2025 Has the PT tested + for MRSA If YES, has PT been informed?: No Medical Necessity Reason Pt with a Central, PICC or Fol: No Subjective Patient was seen and evaluated in follow up. Patient complains of abdominal pain/tenderness. RANDI drain had 75 ml sanguineous output. Echocardiogram showed an EF of 55-60%. WBC 20.9, CA 8.4. Telemetry reviewed. vital signs Vital Sign Date Time Temp Pulse Resp B/P (MAP) Pulse Ox O2 Delivery O2 Flow Rate FiO2 04/29/25 08:34 98.2 76 17 118/46 (70) 96 98.2 04/29/25 08:01 Nasal Cannula* 3 32 Total Intake and Output 04/28/25 04/28/25 04/29/25 15:00 23:00 07:00 Intake Total 100 ml 300 ml 1320 ml Output Total 130 ml 375 ml Balance -30 ml 300 ml 945 ml medications Current Medications Medications Dose Ordered Sig/Cathleen Route Start Time Stop Time Status Last Admin Dose Admin Ondansetron HCl 4 mg Q4HPRN PRN IV 04/27/25 07:45 Cancel Piperacillin Sod/ Tazobactam Sod 100 ml @ 25 mls/hr Q6H IV 04/27/25 16:00 04/29/25 10:35 25 MLS/HR Morphine Sulfate 2 mg Q4HPRN PRN IV 04/27/25 07:45 Hold 04/27/25 11:39 2 MG Nitroglycerin 0.4 mg Q5MINP PRN SL 04/27/25 13:45 Morphine Sulfate 2 mg Q30M PRN IV 04/27/25 13:45 Lorazepam 1 mg Q8HP PRN IV 04/27/25 14:15 Potassium Chloride/Dextrose/ Sod Cl 1,000 ml @ 100 mls/hr Q10H IV 04/27/25 14:45 04/29/25 01:17 100 MLS/HR Vancomycin HCl 0 ml @ 0 mls/hr UD IV 04/28/25 07:15 Potassium Chloride/Dextrose/ Sod Cl 1,000 ml @ 100 mls/hr Q10H IV 04/28/25 13:15 UNV Hydromorphone HCl 1 mg Q3HPRN PRN IV 04/28/25 13:15 Acetaminophen/ Codeine Phosphate 1 tab Q4HP PRN PO 04/28/25 13:15 Ondansetron HCl 4 mg Q4HPRN PRN IV 04/28/25 13:15 Vancomycin HCl 200 ml @ 200 mls/hr Q12H IV 04/28/25 21:00 04/29/25 08:41 200 MLS/HR objective GENERAL: Alert and oriented x 3. No acute distress. EYES: PERRL, EOMI. Anicteric. HENT: Moist mucous membranes. LUNGS: Clear to auscultation bilaterally. CARDIOVASCULAR: Regular rate and rhythm. ABDOMEN: Soft, epigastric tenderness. EXTREMITIES: No edema. NEUROLOGIC: No focal neurological deficits. SKIN: Warm, dry. laboratory and microbiology Laboratory Tests 04/29/25 05:40 Test 04/29/25 05:40 Range/Units Serum Glucose 99 74-106 mg/dL Problem List Acute cholecystitis. Abdominal pain. Sigmoid diverticulosis. Assessment/Plan Continued all current supportive medical care. Nitro SL. Morphine and Tylenol #3 for pain management. IV antibiotics as ordered. Additional plan as per the hospital course. Plan discussed with: Patient CHUCK CUETO MD Apr 29, 2025 13:01
[2025-04-30] VITALS (9 sets, daily range): BP systolic 94–129; BP diastolic 31–60; PULSE 60–86; RESP 16–20; TEMP 97.8–98.5; O2SAT 95–98
[2025-04-30 07:27] LABS: Hematocrit 38.7 % (41.0-53.0); Hemoglobin 13.1 g/dL (13.5-17.5); Mean Corpuscular Hemoglobin 31.8 pg (28.0-32.0); Mean Corpuscular Volume 93.9 fL (80.0-100.0); Nucleated Red Blood Cells % 0.0 %
[2025-04-30 07:45] LABS: Alanine Aminotransferase 25 U/L (7-40); Alkaline Phosphatase 98 U/L (46-116); Anion Gap 6 (5-15); BUN/Creatinine Ratio 18.8 (10.0-20.0); Bilirubin, Total 0.8 mg/dL (0.2-1.0); Blood Urea Nitrogen 12 mg/dL (9-23); Calcium 8.7 mg/dL (8.7-10.4); Carbon Dioxide 26 mmol/L (20-31); Chloride 104 mmol/L (98-107); Glucose 90 mg/dL (74-106); Potassium 4.1 mmol/L (3.5-5.1); Sodium 136 mmol/L (136-145); Total Protein 5.7 g/dL (5.7-8.2)
[2025-04-30 07:46] LABS: Albumin 3.2 g/dL (3.2-4.8)
--- NOTE | 2025-04-30 09:07 | DVHPN2 ---
Progress Note Date Seen: Apr 30, 2025 Has the PT tested + for MRSA If YES, has PT been informed?: No Medical Necessity Reason Pt with a Central, PICC or Fol: No Subjective Patient reports: No new complaints Review of Systems: HEENT:Normal, CVS:Normal, RESPIRATORY:Normal, GI:Normal Objective vital signs Vital Sign Date Time Temp Pulse Resp B/P (MAP) Pulse Ox O2 Delivery O2 Flow Rate FiO2 04/30/25 08:00 60 04/30/25 07:41 18 96 Nasal Cannula* 3 32 04/30/25 05:00 97.8 123/60 (81) 97.8 Total Intake and Output 04/29/25 04/29/25 04/30/25 15:00 23:00 07:00 Intake Total 550 ml 640 ml Output Total 450 ml 550 ml Balance 100 ml 90 ml medications Current Medications Medications Dose Ordered Sig/Cathleen Route Start Time Stop Time Status Last Admin Dose Admin Ondansetron HCl 4 mg Q4HPRN PRN IV 04/27/25 07:45 Cancel Piperacillin Sod/ Tazobactam Sod 100 ml @ 25 mls/hr Q6H IV 04/27/25 16:00 04/30/25 04:17 25 MLS/HR Morphine Sulfate 2 mg Q4HPRN PRN IV 04/27/25 07:45 Hold 04/27/25 11:39 2 MG Nitroglycerin 0.4 mg Q5MINP PRN SL 04/27/25 13:45 Morphine Sulfate 2 mg Q30M PRN IV 04/27/25 13:45 Lorazepam 1 mg Q8HP PRN IV 04/27/25 14:15 Potassium Chloride/Dextrose/ Sod Cl 1,000 ml @ 100 mls/hr Q10H IV 04/27/25 14:45 04/29/25 18:12 100 MLS/HR Vancomycin HCl 0 ml @ 0 mls/hr UD IV 04/28/25 07:15 Potassium Chloride/Dextrose/ Sod Cl 1,000 ml @ 100 mls/hr Q10H IV 04/28/25 13:15 UNV Hydromorphone HCl 1 mg Q3HPRN PRN IV 04/28/25 13:15 Acetaminophen/ Codeine Phosphate 1 tab Q4HP PRN PO 04/28/25 13:15 Ondansetron HCl 4 mg Q4HPRN PRN IV 04/28/25 13:15 Vancomycin HCl 200 ml @ 200 mls/hr Q12H IV 04/28/25 21:00 04/30/25 08:32 200 MLS/HR Examination: GENERAL:Normal, LUNGS:Normal, CVS:Normal, ABDOMEN:Normal laboratory and microbiology Laboratory Tests 04/30/25 06:04 Test 04/30/25 06:04 Range/Units Serum Glucose 90 74-106 mg/dL Problem List/Assessment/Plan Problem List/Assessment/Plan 1) Acute cholecystitis 2) Dementia plan; 04/28-------NPO, IV Abx, IVF hydration, antiemetics, pain control, cardio clearance, surgical consult, daily labs, supportive care, will follow along 04/29----lap kennedy was done yesterday, clear liquid diet as per surgery, pain control, IV antiemetics, IVF hydration, supportive care, continue IV ABx, labs for this AM not drawn and will follow up, surgery on board, will follow up with labs. continue all supportive care 04/30----post op day 2, advanced to soft diet. wbc coming down to 12k, chem nml, continue iv abx and hydration, pain control, dc planning home once cleared by surgery, Plan discussed with: Other (n) MELISSA IRIZARRY MD Apr 30, 2025 09:07
--- NOTE | 2025-04-30 11:15 | DVHPN2 ---
Progress Note Date Seen: Apr 30, 2025 Has the PT tested + for MRSA If YES, has PT been informed?: No Medical Necessity Reason Pt with a Central, PICC or Fol: No Objective vital signs Vital Sign Date Time Temp Pulse Resp B/P (MAP) Pulse Ox O2 Delivery O2 Flow Rate FiO2 04/30/25 08:00 60 04/30/25 07:41 18 96 Nasal Cannula* 3 32 04/30/25 05:00 97.8 123/60 (81) 97.8 Total Intake and Output 04/29/25 04/29/25 04/30/25 15:00 23:00 07:00 Intake Total 550 ml 640 ml Output Total 450 ml 550 ml Balance 100 ml 90 ml medications Current Medications Medications Dose Ordered Sig/Cathleen Route Start Time Stop Time Status Last Admin Dose Admin Ondansetron HCl 4 mg Q4HPRN PRN IV 04/27/25 07:45 Cancel Piperacillin Sod/ Tazobactam Sod 100 ml @ 25 mls/hr Q6H IV 04/27/25 16:00 04/30/25 09:33 25 MLS/HR Morphine Sulfate 2 mg Q4HPRN PRN IV 04/27/25 07:45 Hold 04/27/25 11:39 2 MG Nitroglycerin 0.4 mg Q5MINP PRN SL 04/27/25 13:45 Morphine Sulfate 2 mg Q30M PRN IV 04/27/25 13:45 Lorazepam 1 mg Q8HP PRN IV 04/27/25 14:15 Potassium Chloride/Dextrose/ Sod Cl 1,000 ml @ 100 mls/hr Q10H IV 04/27/25 14:45 04/29/25 18:12 100 MLS/HR Vancomycin HCl 0 ml @ 0 mls/hr UD IV 04/28/25 07:15 Potassium Chloride/Dextrose/ Sod Cl 1,000 ml @ 100 mls/hr Q10H IV 04/28/25 13:15 UNV Hydromorphone HCl 1 mg Q3HPRN PRN IV 04/28/25 13:15 Acetaminophen/ Codeine Phosphate 1 tab Q4HP PRN PO 04/28/25 13:15 Ondansetron HCl 4 mg Q4HPRN PRN IV 04/28/25 13:15 Vancomycin HCl 200 ml @ 200 mls/hr Q12H IV 04/28/25 21:00 04/30/25 08:32 200 MLS/HR laboratory and microbiology Laboratory Tests 04/30/25 06:04 Test 04/30/25 06:04 Range/Units Serum Glucose 90 74-106 mg/dL Problem List/Assessment/Plan Problem List/Assessment/Plan 04/29/25 improving, abdomen appropriately tender, wounds clean and well approximated, bilirubin and LFT/sd as well as WBC improving, continue as is , needs ambulation 04/30/25 doing well, wounds clean and well approximated, drainage serosanguineous, abdomen appropriately tender, confused ,needs iv antibiotics another 48 hours. Plan discussed with: Patient MAC ARMENTA MD Apr 30, 2025 11:15
[2025-04-30] MEDS: PIPERACILLIN-TAZOB 3.375GM 100 ML IV SCH (22:00)
--- NOTE | 2025-04-30 23:52 | DVHPN2 ---
Progress Note - Dictate Date Seen: Apr 30, 2025 Has the PT tested + for MRSA If YES, has PT been informed?: No Medical Necessity Reason Pt with a Central, PICC or Fol: No Subjective Patient was seen and evaluated in follow up. Patient complains of abdominal pain/tenderness. RANDI drain had 20 ml output. Patient is working with PT. WBC 12.6. Telemetry reviewed. vital signs Vital Sign Date Time Temp Pulse Resp B/P (MAP) Pulse Ox O2 Delivery O2 Flow Rate FiO2 04/30/25 13:19 98.4 68 20 117/51 (73) 98 98.4 04/30/25 07:41 Nasal Cannula* 3 32 Total Intake and Output 04/29/25 04/29/25 04/30/25 15:00 23:00 07:00 Intake Total 550 ml 640 ml Output Total 450 ml 550 ml Balance 100 ml 90 ml medications Current Medications Medications Dose Ordered Sig/Cathleen Route Start Time Stop Time Status Last Admin Dose Admin Ondansetron HCl 4 mg Q4HPRN PRN IV 04/27/25 07:45 Cancel Piperacillin Sod/ Tazobactam Sod 100 ml @ 25 mls/hr Q6H IV 04/27/25 16:00 04/30/25 09:33 25 MLS/HR Morphine Sulfate 2 mg Q4HPRN PRN IV 04/27/25 07:45 Hold 04/27/25 11:39 2 MG Nitroglycerin 0.4 mg Q5MINP PRN SL 04/27/25 13:45 Morphine Sulfate 2 mg Q30M PRN IV 04/27/25 13:45 Lorazepam 1 mg Q8HP PRN IV 04/27/25 14:15 Potassium Chloride/Dextrose/ Sod Cl 1,000 ml @ 100 mls/hr Q10H IV 04/27/25 14:45 04/30/25 13:01 100 MLS/HR Vancomycin HCl 0 ml @ 0 mls/hr UD IV 04/28/25 07:15 Potassium Chloride/Dextrose/ Sod Cl 1,000 ml @ 100 mls/hr Q10H IV 04/28/25 13:15 UNV Hydromorphone HCl 1 mg Q3HPRN PRN IV 04/28/25 13:15 Acetaminophen/ Codeine Phosphate 1 tab Q4HP PRN PO 04/28/25 13:15 Ondansetron HCl 4 mg Q4HPRN PRN IV 04/28/25 13:15 Vancomycin HCl 200 ml @ 200 mls/hr Q12H IV 04/28/25 21:00 04/30/25 08:32 200 MLS/HR objective GENERAL: Alert and oriented x 3. No acute distress. EYES: PERRL, EOMI. Anicteric. HENT: Moist mucous membranes. LUNGS: Clear to auscultation bilaterally. CARDIOVASCULAR: Regular rate and rhythm. ABDOMEN: Soft, epigastric tenderness. EXTREMITIES: No edema. NEUROLOGIC: No focal neurological deficits. SKIN: Warm, dry. laboratory and microbiology Laboratory Tests 04/30/25 06:04 Test 04/30/25 06:04 Range/Units Serum Glucose 90 74-106 mg/dL Problem List Acute cholecystitis. Abdominal pain. Sigmoid diverticulosis. Assessment/Plan Continued all current supportive medical care. Nitro SL. Morphine, Dilaudid and Tylenol #3 for pain management. IV antibiotics as ordered. Additional plan as per the hospital course. Plan discussed with: Patient CHUCK CUETO MD Apr 30, 2025 13:30
[2025-05-01 01:00] VITALS: BP 135/51; PULSE 60; RESP 19; TEMP 98; O2SAT 96
[2025-05-01 05:00] VITALS: BP 128/60; PULSE 63; RESP 19; TEMP 97.8; O2SAT 95
[2025-05-01 06:17] LABS: Hematocrit 39.4 % (41.0-53.0); Hemoglobin 13.5 g/dL (13.5-17.5); Mean Corpuscular Hemoglobin 31.8 pg (28.0-32.0); Mean Corpuscular Volume 93.0 fL (80.0-100.0); Nucleated Red Blood Cells % 0.0 %
[2025-05-01 06:37] LABS: Alanine Aminotransferase 24 U/L (7-40); Albumin 3.3 g/dL (3.2-4.8); Alkaline Phosphatase 102 U/L (46-116); Anion Gap 6 (5-15); BUN/Creatinine Ratio 16.9 (10.0-20.0); Blood Urea Nitrogen 11 mg/dL (9-23); Calcium 9.1 mg/dL (8.7-10.4); Carbon Dioxide 30 mmol/L (20-31); Chloride 102 mmol/L (98-107); Glucose 93 mg/dL (74-106); Potassium 4.1 mmol/L (3.5-5.1); Sodium 138 mmol/L (136-145); Total Protein 5.8 g/dL (5.7-8.2)
[2025-05-01 06:38] LABS: Bilirubin, Total 0.7 mg/dL (0.2-1.0)
--- NOTE | 2025-05-01 07:09 | DVHPN2 ---
Progress Note Date Seen: May 01, 2025 Has the PT tested + for MRSA If YES, has PT been informed?: No Medical Necessity Reason Pt with a Central, PICC or Fol: No Subjective Patient reports: No new complaints Review of Systems: HEENT:Normal, RESPIRATORY:Normal, GI:Abnormal Objective vital signs Vital Sign Date Time Temp Pulse Resp B/P (MAP) Pulse Ox O2 Delivery O2 Flow Rate FiO2 05/01/25 05:00 97.8 63 19 128/60 (82) 95 97.8 04/30/25 20:00 Nasal Cannula* 3 32 Total Intake and Output 04/30/25 04/30/25 05/01/25 15:00 23:00 07:00 Intake Total 480 ml 580 ml 320 ml Output Total 620 ml Balance 480 ml -40 ml 320 ml medications Current Medications Medications Dose Ordered Sig/Cathleen Route Start Time Stop Time Status Last Admin Dose Admin Ondansetron HCl 4 mg Q4HPRN PRN IV 04/27/25 07:45 Cancel Morphine Sulfate 2 mg Q4HPRN PRN IV 04/27/25 07:45 Hold 04/27/25 11:39 2 MG Nitroglycerin 0.4 mg Q5MINP PRN SL 04/27/25 13:45 Morphine Sulfate 2 mg Q30M PRN IV 04/27/25 13:45 Lorazepam 1 mg Q8HP PRN IV 04/27/25 14:15 Potassium Chloride/Dextrose/ Sod Cl 1,000 ml @ 100 mls/hr Q10H IV 04/27/25 14:45 05/01/25 02:42 100 MLS/HR Vancomycin HCl 0 ml @ 0 mls/hr UD IV 04/28/25 07:15 Potassium Chloride/Dextrose/ Sod Cl 1,000 ml @ 100 mls/hr Q10H IV 04/28/25 13:15 UNV Hydromorphone HCl 1 mg Q3HPRN PRN IV 04/28/25 13:15 Acetaminophen/ Codeine Phosphate 1 tab Q4HP PRN PO 04/28/25 13:15 Ondansetron HCl 4 mg Q4HPRN PRN IV 04/28/25 13:15 Vancomycin HCl 200 ml @ 200 mls/hr Q12H IV 04/28/25 21:00 04/30/25 08:32 200 MLS/HR Piperacillin Sod/ Tazobactam Sod 100 ml @ 25 mls/hr Q8HR IV 04/30/25 22:00 05/01/25 05:29 25 MLS/HR Examination: GENERAL:Normal, LUNGS:Normal, CVS:Normal, ABDOMEN:Abnormal laboratory and microbiology Laboratory Tests 05/01/25 05:20 Test 05/01/25 05:20 Range/Units Serum Glucose 93 74-106 mg/dL Problem List/Assessment/Plan Problem List/Assessment/Plan 1) Acute cholecystitis 2) Dementia plan; 04/28-------NPO, IV Abx, IVF hydration, antiemetics, pain control, cardio clearance, surgical consult, daily labs, supportive care, will follow along 04/29----lap kennedy was done yesterday, clear liquid diet as per surgery, pain control, IV antiemetics, IVF hydration, supportive care, continue IV ABx, labs for this AM not drawn and will follow up, surgery on board, will follow up with labs. continue all supportive care 04/30----post op day 2, advanced to soft diet. wbc coming down to 12k, chem nml, continue iv abx and hydration, pain control, dc planning home once cleared by surgery, 05/01----post-op day 3, tolerating diet, PT working with patient, WBC now normal at 9k, chem nml, continue all current care, dc planning home once cleared by surgery Plan discussed with: Other MELISSA IRIZARRY MD May 01, 2025 07:08
[2025-05-01 08:30] VITALS: PULSE 59; RESP 18; O2SAT 96
[2025-05-01] MEDS ORDERED: AUG875T PO (08:33)
--- NOTE | 2025-05-01 08:43 | DVHDS2 ---
New Physician D'charge PN Admitting Diagnosis Admitting Diagnosis acute cholecystitis Discharge Diagnosis acute cholecystitis s/p lap kennedy Operations or Procedures lap kennedy Reason(s) For Hospitalization Surgery Hospital Course 84 M who comes to ER for abdominal pain. His CT imaging revealed gallstones and he underwent HIDA scan which was consistent with acute cholecystitis. He was admitted to the hospital and kept NPO and started on IV Abx vanco/zosyn. Cardiology saw him and he had an echo which showed EF 55-60% and he was cleared by cardiology for surgery. HIs WBC peaked at 28k and he was evaluated by surgery and he underwent laparoscopic cholecystectomy with no complications. He was kept on IV Abx and his WBC now normalized to 9k this AM. HIs chem panel is also normal. His diet was advanced after surgery and he is tolerating it. He was seen by surgery today and cleared for discharge home. He has a RANDI drain and it will be removed on office follow up in 10 days outpt with surgery. [facility]. Scripts for PO ABx sent to patients pharmacy on file. Patient cleared for DC home. Treatment Plan Discharge Condition of Discharge Good Disposition Home with Health Services Discharge Instructions Diet: Cardiac 2g Na,low cholest Activity: No Restrictions, As Tolerated Medications: see med sheet Follow Up Care Follow Up/Referral: pcp surgery Discharge Statement: "Patient was advised to return to the ER or call 911 if any headaches, dizziness, shortness of breath, chest pain, abdominal pain, bleeding, fevers, or worsening of medical condition. Patient was counseled about treatment plan, medications, possible side effects, patientverbalized understanding. All questions were answered to the best of my ability. This discharge took greater then 30 minutes in planning, reviewing documentation, counseling the patient, and discussing with other team members." MELISSA IRIZARRY MD May 01, 2025 08:43
[2025-05-01 09:00] VITALS: BP 127/55; PULSE 70; RESP 18; TEMP 97.6; O2SAT 91
[2025-05-01 12:00] VITALS: BP 125/66; PULSE 69; RESP 18; TEMP 98.5; O2SAT 91
--- NOTE | 2025-05-01 22:33 | DVHPN2 ---
Progress Note - Dictate Date Seen: May 01, 2025 Has the PT tested + for MRSA If YES, has PT been informed?: No Medical Necessity Reason Pt with a Central, PICC or Fol: No Subjective Patient was seen and evaluated in follow up. Patient has no new complaints at this time. Patient denies any cardiac symptoms. Patient is cardiac stable for discharge. Telemetry reviewed. vital signs Vital Sign Date Time Temp Pulse Resp B/P (MAP) Pulse Ox O2 Delivery O2 Flow Rate FiO2 05/01/25 12:00 98.5 69 18 125/66 (85) 91 98.5 04/30/25 20:00 Nasal Cannula* 3 32 Total Intake and Output 04/30/25 04/30/25 05/01/25 15:00 23:00 07:00 Intake Total 480 ml 580 ml 320 ml Output Total 620 ml Balance 480 ml -40 ml 320 ml medications Current Medications Medications Dose Ordered Sig/Cathleen Route Start Time Stop Time Status Last Admin Dose Admin Ondansetron HCl 4 mg Q4HPRN PRN IV 04/27/25 07:45 Cancel Morphine Sulfate 2 mg Q4HPRN PRN IV 04/27/25 07:45 Hold 04/27/25 11:39 2 MG Nitroglycerin 0.4 mg Q5MINP PRN SL 04/27/25 13:45 Morphine Sulfate 2 mg Q30M PRN IV 04/27/25 13:45 Lorazepam 1 mg Q8HP PRN IV 04/27/25 14:15 Potassium Chloride/Dextrose/ Sod Cl 1,000 ml @ 100 mls/hr Q10H IV 04/27/25 14:45 05/01/25 02:42 100 MLS/HR Vancomycin HCl 0 ml @ 0 mls/hr UD IV 04/28/25 07:15 Potassium Chloride/Dextrose/ Sod Cl 1,000 ml @ 100 mls/hr Q10H IV 04/28/25 13:15 UNV Hydromorphone HCl 1 mg Q3HPRN PRN IV 04/28/25 13:15 Acetaminophen/ Codeine Phosphate 1 tab Q4HP PRN PO 04/28/25 13:15 Ondansetron HCl 4 mg Q4HPRN PRN IV 04/28/25 13:15 Vancomycin HCl 200 ml @ 200 mls/hr Q12H IV 04/28/25 21:00 05/01/25 11:25 200 MLS/HR Piperacillin Sod/ Tazobactam Sod 100 ml @ 25 mls/hr Q8HR IV 04/30/25 22:00 05/01/25 05:29 25 MLS/HR objective GENERAL: Alert and oriented x 3. No acute distress. EYES: PERRL, EOMI. Anicteric. HENT: Moist mucous membranes. LUNGS: Clear to auscultation bilaterally. CARDIOVASCULAR: Regular rate and rhythm. ABDOMEN: Soft, epigastric tenderness. EXTREMITIES: No edema. NEUROLOGIC: No focal neurological deficits. SKIN: Warm, dry. laboratory and microbiology Laboratory Tests 05/01/25 05:20 Test 05/01/25 05:20 Range/Units Serum Glucose 93 74-106 mg/dL Problem List Acute cholecystitis. Abdominal pain. Sigmoid diverticulosis. Assessment/Plan Continued all current supportive medical care. Nitro SL. Morphine, Dilaudid and Tylenol #3 for pain management. IV antibiotics as ordered. Additional plan as per the hospital course. Plan discussed with: Patient CHUCK CUETO MD May 01, 2025 14:17
== END 2025-05-01 17:32 | disposition home health service (06) | DRG 417 ==
LOC: ER 00:23 → OVERFLOW 13:43 → TELE-WESTW 15:54
PROVIDERS: ADMIT Student in an Organized Health Care Education/Training Program; ATTEND Student in an Organized Health Care Education/Training Program
PROC: 0FT44ZZ Resection of Gallbladder, Percutaneous Endoscopic Approach (ICD-10-PCS; principal; 2025-04-28 11:57)
DX: K80.00 Calculus of gallbladder with acute cholecystitis without obstruction (principal); J96.01 Acute respiratory failure with hypoxia; R65.11 Systemic inflammatory response syndrome (SIRS) of non-infectious origin with acute organ dysfunction; E87.20 Acidosis, unspecified; K56.7 Ileus, unspecified; K57.30 Diverticulosis of large intestine without perforation or abscess without bleeding; K82.A1 Gangrene of gallbladder in cholecystitis; Z79.899 Other long term (current) drug therapy
CPT/HCPCS: 36415; 71045; 74176; 78226; 80053; 80202; 81001; 82247; 83605; 83690; 84484; 85007; 85025; 85027; 85610; 85730; 87070; 87075; 87081; 87205; 93005; 93306; 96361; 96374; 96375; 97110; 97116; 97163; 97530; G0378; J0131; J0330; J2405; J2543; J3490